=== PATIENT | male | born 1980 | race Caucasian/White ===

== ENCOUNTER 2016-12-15 13:17 | Emergency (ER) | payer OTHER ==
[2016-12-15 14:40] VITALS: BP 129/86; PULSE 79; RESP 16; TEMP 98; O2SAT 93
== END 2016-12-15 15:31 | disposition home or self-care (01) | DRG 605 ==
LOC: ED 13:17
DX: S50.11XA Contusion of right forearm, initial encounter (principal)
CPT/HCPCS: 73090; 99282